=== PATIENT | male | born 1995 | race Caucasian/White ===

== ENCOUNTER → 2016-03-13 | Outpatient (CLI) | payer OTHER ==
[~2016-03-13] MED LIST: ALBUAER19 INH; AZAT50TA17 PO; CETI10TA84 PO; EPP3/2 IM; IMD/2 PO; MESA800T6 PO; PREDPOW63 PO
--- NOTE | 2016-03-13 15:58 | DIAGNOSTIC IMAGING REPORT ---
ULTRASOUND ABDOMEN COMPLETE CLINICAL HISTORY: Primary sclerosing cholangitis. COMPARISON STUDY: Abdominal ultrasound dated 04/19/15. TECHNIQUE: Real-time, grayscale, and color flow sonography of the abdomen was performed. Images are reviewed in the transverse and longitudinal planes. FINDINGS: Liver: The liver is normal in size and heterogeneous in echotexture. The liver measures 15.5 cm in length. There is no intrahepatic biliary ductal dilatation. The main portal vein is patent. Gallbladder: The gallbladder is normal in appearance. No gallstones are identified. There is no gallbladder wall thickening or pericholecystic fluid. A sonographic Payne's sign is reportedly absent. The common bile duct measures up to 0.4 cm in diameter. Pancreas: Not well visualized due to overlying bowel gas. Spleen: The spleen is enlarged, measuring 16.0 cm in length. Kidneys: The kidneys are normal in size and echotexture. There is no hydronephrosis. The right kidney measures 10.5 cm in length and the left kidney measures 11.3 cm in length. No shadowing calculi are identified. Abdominal vasculature: Visualized portions of the abdominal aorta and IVC are normal in appearance. Ascites: None. IMPRESSION: 1. The liver is normal in size and heterogeneous in echotexture. 2. Splenomegaly. 3. No gallstones are identified. 4. The pancreas was not well visualized due to overlying bowel gas. Electronically signed by: Neo Mcnair M.D. 03/13/2016 3:56 PM Dictated Date/Time: 03/13/2016 3:54 PM
--- NOTE | 2016-03-14 10:33 | DIAGNOSTIC IMAGING REPORT ---
MRCP CLINICAL HISTORY: Primary sclerosing cholangitis. COMPARISON STUDY: MRCP April 26, 2015. TECHNIQUE: Utilizing a 1.5 [place] magnet and dedicated coil, multiplanar, multiecho imaging of the abdomen was performed utilizing heavily T2-weighted sequences. No intravenous contrast was administered. FINDINGS: Heterogeneous appearance of the liver with a lace-like appearance is again noted. Hepatomegaly has slightly diminished since exam of April 26, 2015. The liver now measures 17.6 cm in craniocaudal dimension. It measured 19.5 cm on exam of April 26, 2015. No hepatic lesions are identified on this unenhanced exam. Moderate splenomegaly has slightly diminished since prior exam. The spleen now measures 16.8 cm. It previously measured 17.9 cm. There are no splenic lesions. Multifocal irregular narrowing of the intrahepatic bile ducts is again noted. This is likely similar to prior MRI. There is marked narrowing of the common hepatic duct and the confluence of the right and left hepatic ducts. On the majority of the sequences, this is similar to prior exam. On the 3-D MRCP sequence, there may be slight progression of the stricture although this could be due to motion artifact on current exam. There is no significant upstream biliary ductal dilatation. No associated mass is identified on this unenhanced exam. There is no ascites. Unenhanced images of the adrenal glands, kidneys and pancreas are normal. Caliber of visualized small and large bowel are normal. IMPRESSION: 1. Multifocal intrahepatic and extrahepatic biliary strictures consistent with primary sclerosing cholangitis. Dominant stricture of the common hepatic duct and confluence of the right and left hepatic ducts. This stricture is either stable or minimally increased since prior exam. Apparent change since prior study may be artifactual. No significant upstream dilatation. No associated mass identified on this unenhanced exam. Attention to this stricture on subsequent imaging studies is recommended. 2. Heterogeneous appearance of the liver with a lace-like appearance. The appearance is similar to prior exam although hepatomegaly has slightly diminished. The findings are consistent with diffuse liver disease and could reflect fibrosis. Overall, these findings could be seen in the setting of overlap syndrome. 3. Moderate splenomegaly, slightly diminished since prior exam. Electronically signed by: Nikolay Cross M.D. 03/14/2016 10:31 AM Dictated Date/Time: 03/13/2016 3:57 PM
== END | disposition home or self-care (01) ==
LOC: C.MRIBC 09:48
PROVIDERS: ATTEND Internal Medicine Gastroenterology
DX: K75.4 Autoimmune hepatitis (principal); K83.0 Cholangitis; R16.1 Splenomegaly, not elsewhere classified

== ENCOUNTER → 2016-03-16 | Day surgery (SDC) | payer OTHER ==
[2016-03-04 11:08] VITALS: BMI 22.0
[~2016-03-16] VITALS: Ht 175.3 cm; Wt 68.2 kg
[~2016-03-16] MED LIST changes: +LIDOCAINE HCL 2% 2 ML VIAL (20MG/ML) ONE; +MIDAZOLAM HCL 1 MG/ML 2ML VIAL ONE; +ONDANSETRON INJ 2 MG/ML 2 ML VIAL ONE; +PHENYLEPHRINE 100MCG/ML 5ML SYR ONE; +PROPOFOL IV EMULSION 10 MG/ML 20 ML VIAL IV ONE; +SODIUM CHLORIDE 0.9% 500ML 500 ML IV ONE
[2016-03-16 08:37] VITALS: Ht 175.3 cm; Wt 68.2 kg
--- NOTE | 2016-03-16 08:50 | Endo History and Physical ---
History & Physical Date of Service: Mar 16, 2016. Chief Complaint: Ulcerative colitis, PSC Referring Physician: Prabhjot Horne History of Present Illness 20 yo CM who presents for colonoscopy secondary to Ulcerative colitis and PSC. Past Medical History Asthma, Gastrointestinal Disorder, Cancer, Liver Disease Past Surgical History Hx Cardiac Surgery: No Hx Internal Defibrillator: No Hx Pacemaker: No Hx Abdominal Surgery: Yes (INGUINAL HERNIA) Hx of Implantable Prosthesis: No Hx Post-Op Nausea and Vomiting: No Hx Cancer Surgery: Yes (MOHS ON BACK) Hx Thoracic Surgery: No Hx Orthopedic: No Hx Urinary Tract Surgery: Yes (HYDROCELE REPAIR) Family History IBD Social History Smoking Status: Never Smoker Hx Substance Use: No Hx Alcohol Use: Yes (VERY RARELY) Allergies Coded Allergies: Peanut (Verified Allergy, Severe, ANAPHYLAXIS, 03/16/16) NO KNOWN DRUG ALLERGIES (Verified Allergy, Unknown, ., 03/16/16) Current Medications Reported Home Medications Medications Dose Route/Sig Max Daily Dose Days Date Category Imodium (Loperamide HCl) 2 Mg Cap 2 Mg PO QAM 03/04/16 Reported Imuran (Azathioprine) 50 Mg Tab 75 Mg PO QPM 03/04/16 Reported Asacol Hd (Mesalamine) 800 Mg Tab 2 Tab PO TID 03/04/16 Reported [Prednisone] 20 Mg PO QPM 03/04/16 Reported Epipen 2-Jole (Epinephrine) 0.3 Mg Inj 0.3 Mg IM UD PRN 12/25/13 Reported Ventolin Inhaler (Albuterol) Aers 2 Puffs INH Q4H PRN 12/25/13 Reported Zyrtec (Cetirizine HCl) 10 Mg Tab 10 Mg PO DAILY PRN 12/25/13 Reported Vital Signs Weight (Kilograms): 68.18 Height (Feet): 5 Height (Inches): 9 Physical Exam General Appearance: WD/WN, no apparent distress Respiratory/Chest: Auscultation: breath sounds normal Cardiovascular: Heart Auscultation: RRR Abdomen: Bowel Sounds: normal Inspection & Palpation: soft, non-distended, no tenderness, guarding & rebound Assessment and Plan Assessment: 20 yo CM who presents for colonoscopy secondary to Ulcerative colitis and PSC. Plan: Proceed with colonoscopy.
--- NOTE | 2016-03-16 09:48 | GI REPORT ---
Procedure Date: 03/16/2016 9:00 AM Procedure: Colonoscopy Indications: High risk colon cancer surveillance: Ulcerative pancolitis Medicines: Monitored Anesthesia Care Complications: No immediate complications. Estimated Blood Loss: Estimated blood loss: none. Procedure: Pre-Anesthesia Assessment: - Prior to the procedure, a History and Physical was performed, and patient medications and allergies were reviewed. The patient's tolerance of previous anesthesia was also reviewed. The risks and benefits of the procedure and the sedation options and risks were discussed with the patient. All questions were answered, and informed consent was obtained. Prior Anticoagulants: The patient has taken no previous anticoagulant or antiplatelet agents. ASA Grade Assessment: II - A patient with mild systemic disease. After reviewing the risks and benefits, the patient was deemed in satisfactory condition to undergo the procedure. After I obtained informed consent, the scope was passed under direct vision. Throughout the procedure, the patient's blood pressure, pulse, and oxygen saturations were monitored continuously. The scope was introduced through the anus and advanced to the terminal ileum. The colonoscopy was performed without difficulty. The patient tolerated the procedure well. The quality of the bowel preparation was good. The terminal ileum, ileocecal valve, appendiceal orifice, and rectum were photographed. Findings: A diffuse area of mildly altered vascular and erythematous mucosa was found in the entire colon. Two biopsies were taken every 10 cm with a cold forceps from the entire colon for ulcerative colitis surveillance. These biopsy specimens from the ascending colon, transverse colon and rectosigmoid colon were sent to Pathology. The exam was otherwise without abnormality. Impression: - Altered vascular and erythematous mucosa in the entire examined colon. Biopsied. - The examination was otherwise normal. Recommendation: - Resume previous diet. - Continue present medications. - Repeat colonoscopy in 1 year for surveillance based on pathology results. - Return to primary care physician as previously scheduled. Jorge Garcia DO 03/16/2016 9:47:22 AM This report has been signed electronically. Note Initiated On: 03/16/2016 9:00 AM
--- NOTE | 2016-03-16 09:51 | Discharge Instructions ---
Endoscopy Patient Instructions Date / Procedure(s) Performed Mar 16, 2016. Colonoscopy Allergy Information Coded Allergies: Peanut (Verified Allergy, Severe, ANAPHYLAXIS, 03/16/16) NO KNOWN DRUG ALLERGIES (Verified Allergy, Unknown, ., 03/16/16) Discharge Date / Findings Mar 16, 2016. Ulcerative colitis with random biopsies Medication Instructions OK to resume all medications today as prescribed. Reported Home Medications Medications Dose Route/Sig Max Daily Dose Days Date Category Imodium (Loperamide HCl) 2 Mg Cap 2 Mg PO QAM 03/04/16 Reported Imuran (Azathioprine) 50 Mg Tab 75 Mg PO QPM 03/04/16 Reported Asacol Hd (Mesalamine) 800 Mg Tab 2 Tab PO TID 03/04/16 Reported [Prednisone] 20 Mg PO QPM 03/04/16 Reported Epipen 2-Joel (Epinephrine) 0.3 Mg Inj 0.3 Mg IM UD PRN 12/25/13 Reported Ventolin Inhaler (Albuterol) Aers 2 Puffs INH Q4H PRN 12/25/13 Reported Zyrtec (Cetirizine HCl) 10 Mg Tab 10 Mg PO DAILY PRN 12/25/13 Reported Provider Instructions Activity Restrictions - No exercising or heavy lifting for 24 hours. - Do not drink alcohol the day of the procedure. - Do not drive a car or operate machinery until the day after the procedure. - Do not make any important decisions or sign important papers in 24 hours after the procedure. Following Day: - Return to full activity which may include returning to work/school. Diet Start your diet with liquids and light foods (jello, soup, juice, toast). Then eat your usual diet if not nauseated. Treatment For Common After Affects For mild abdominal pain, bloating, or excessive gas: - Rest - Eat lightly - Lie on right side Follow-Up Information Follow-up with [facility] SEG[facility] as scheduled Anesthesia Information What You Should Know You have had a procedure that required some medicine to reduce anxiety and discomfort. This treatment is called moderate sedation. After receiving the treatment, you may be sleepy, but you will be able to breathe on your own. The effects of the treatment may last for several hours. Follow these instructions along with Activity/Diet recommendations noted above: * Do NOT do anything where dizziness or clumsiness would be dangerous. * Rest quietly at home today, then you can be up and about tomorrow. * Have a responsible person stay with you the rest of today. * You may have had an I.V. today. If so, you may take the dressing off later today. Recommendations Call your doctor if: * Trouble breathing * Continuous vomiting for more than 24 hours * Temperature above 101 degrees * Severe abdominal pain or bloating * Pain not relieved by pain medicine ordered * There is increased drainage or redness from any incision * A large amount of rectal bleeding greater than 2-3 tablespoons. (If you had a polyp/s removed or have hemorrhoids, a small amount of blood - from the rectum is to be expected.) * You have any unanswered questions or concerns. IN THE EVENT OF A SERIOUS EMERGENCY, GO TO THE NEAREST EMERGENCY ROOM Your discharge instructions were prepared by provider Jorge Garcia. Patient Instructions Signature Page Mario Smith Patient (or Guardian) Signature/Date: I have read and understand the instructions given to me by my caregivers. Caregiver/RN/Doctor Signature/Date: The above-named patient and/or guardian has received patient instructions on this date. + Original Patient Signature Page (only) stays with chart. Please make copy for patient.
[2016-03-16 10:22] VITALS: BP 106/57; PULSE 57; O2SAT 99
--- NOTE | 2016-03-16 11:19 | Anesthesiology Progress Note ---
Anesthesia Post Op Note Date & Time Mar 16, 2016 at 11:18 Vital Signs Vital Signs Past 12 Hours Date Time Temp Pulse Resp B/P Pulse Ox O2 Delivery O2 Flow Rate FiO2 03/16/16 10:22 57 20 106/57 99 Room Air 03/16/16 10:16 57 20 99/54 99 Room Air 03/16/16 10:01 56 20 88/44 99 Room Air 03/16/16 09:45 57 20 91/49 99 Room Air 03/16/16 08:51 36.5 59 18 120/71 99 Room Air Notes Mental Status: alert / awake / arousable, participated in evaluation Pt Amnestic to Procedure: Yes Nausea / Vomiting: adequately controlled Pain: adequately controlled Airway Patency, RR, SpO2: stable & adequate BP & HR: stable & adequate Hydration State: stable & adequate Anesthetic Complications: no major complications apparent
== END | disposition home or self-care (01) ==
LOC: C.GI 08:26
PROVIDERS: ATTEND Internal Medicine
DX: Z12.11 Encounter for screening for malignant neoplasm of colon (principal); K51.00 Ulcerative (chronic) pancolitis without complications; Z83.79 Family history of other diseases of the digestive system

== ENCOUNTER → 2016-03-18 | Outpatient (CLI) | payer OTHER ==
[~2016-03-18] MED LIST changes: -LIDOCAINE HCL 2% 2 ML VIAL (20MG/ML) ONE; -MIDAZOLAM HCL 1 MG/ML 2ML VIAL ONE; -ONDANSETRON INJ 2 MG/ML 2 ML VIAL ONE; -PHENYLEPHRINE 100MCG/ML 5ML SYR ONE; -PROPOFOL IV EMULSION 10 MG/ML 20 ML VIAL IV ONE; -SODIUM CHLORIDE 0.9% 500ML 500 ML IV ONE
[2016-03-18 17:16] LABS: HEMATOCRIT 45.2 % (42-52); MEAN CELL VOLUME 92.8 fL (80-100); MEAN CORPUSCULAR HEMOGLOBIN 32.4 pg (25-34); MEAN PLATELET VOLUME 12.2 fL (7.4-10.4); PLATELET COUNT 78 K/uL (130-400); RED BLOOD COUNT 4.87 M/uL (4.7-6.1); WHITE BLOOD COUNT 5.89 K/uL (4.8-10.8)
[2016-03-18 17:19] LABS: INR 1.1 (0.9-1.1)
[2016-03-18 17:31] LABS: ALT/SGPT 117 U/L (12-78); BLOOD UREA NITROGEN 17 mg/dl (7-18); BUN/CREATININE RATIO 20.6 (10-20); CALCIUM 9.5 mg/dl (8.5-10.1); CARBON DIOXIDE 28 mmol/L (21-32); CHLORIDE 106 mmol/L (98-107); CREATININE 0.82 mg/dl (0.60-1.40); GLUCOSE 88 mg/dl (70-99); POTASSIUM 3.9 mmol/L (3.5-5.1); SODIUM 143 mmol/L (136-145)
[2016-03-18 17:34] LABS: ALKALINE PHOSPHATASE 94 U/L (45-117); AST/SGOT 53 U/L (15-37)
== END | disposition home or self-care (01) ==
LOC: C.LABBC 13:43
PROVIDERS: ATTEND Internal Medicine Gastroenterology
DX: K75.4 Autoimmune hepatitis (principal); K83.0 Cholangitis

== ENCOUNTER → 2016-03-30 | Outpatient (CLI) | payer OTHER ==
[2016-03-30 17:05] LABS: HEMATOCRIT 44.6 % (42-52); MEAN CELL VOLUME 92.9 fL (80-100); MEAN CORPUSCULAR HEMOGLOBIN 32.5 pg (25-34); MEAN PLATELET VOLUME 12.2 fL (7.4-10.4); PLATELET COUNT 79 K/uL (130-400); WHITE BLOOD COUNT 5.37 K/uL (4.8-10.8)
[2016-03-30 17:06] LABS: ALT/SGPT 120 U/L (12-78); AST/SGOT 50 U/L (15-37); BLOOD UREA NITROGEN 14 mg/dl (7-18); CALCIUM 8.8 mg/dl (8.5-10.1); CARBON DIOXIDE 28 mmol/L (21-32); CHLORIDE 107 mmol/L (98-107); CREATININE 0.87 mg/dl (0.60-1.40); GLUCOSE 95 mg/dl (70-99); POTASSIUM 3.7 mmol/L (3.5-5.1); SODIUM 143 mmol/L (136-145)
[2016-03-30 17:09] LABS: ALKALINE PHOSPHATASE 104 U/L (45-117)
== END | disposition home or self-care (01) ==
LOC: C.LABBC 13:37
PROVIDERS: ATTEND Internal Medicine Gastroenterology
DX: K75.4 Autoimmune hepatitis (principal); K83.0 Cholangitis

== ENCOUNTER → 2016-08-04 | Outpatient (CLI) | payer OTHER ==
[~2016-08-04] MED LIST changes: +MESA1TAB4 PO; -MESA800T6 PO
[2016-08-04 13:34] LABS: HEMATOCRIT 44.2 % (42-52); MEAN CORPUSCULAR HGB CONC 35.1 g/dl (32-36); MEAN PLATELET VOLUME 11.9 fL (7.4-10.4); PLATELET COUNT 68 K/uL (130-400); WHITE BLOOD COUNT 4.43 K/uL (4.8-10.8)
[2016-08-04 13:58] LABS: BASO % 0.2 %; BASO ABS # 0.01 K/uL (0-0.2); COMPLETE YES; EOS % 0.9 %; LYMPH % 29.3 %; MONO % 3.8 %; NEUT % 65.8 %
[2016-08-04 14:19] LABS: ALT/SGPT 95 U/L (12-78); BLOOD UREA NITROGEN 15 mg/dl (7-18); BUN/CREATININE RATIO 14.6 (10-20); C-REACTIVE PROTEIN < 0.29 mg/dl (0-0.29); CARBON DIOXIDE 27 mmol/L (21-32); CHLORIDE 109 mmol/L (98-107); CREATININE 0.99 mg/dl (0.60-1.40); GLUCOSE 115 mg/dl (70-99); POTASSIUM 3.3 mmol/L (3.5-5.1); SODIUM 144 mmol/L (136-145)
[2016-08-04 14:21] LABS: ALB/GLOB RATIO 1.1 (0.9-2); ALKALINE PHOSPHATASE 67 U/L (45-117); AST/SGOT 77 U/L (15-37)
[2016-08-04 14:22] LABS: CALCIUM 9.3 mg/dl (8.5-10.1)
[2016-08-06 10:33] LABS: QUANTIF TB AG-NIL 0.01 IU/ML; QUANTIFERON NIL 0.02 IU/ML
== END | disposition home or self-care (01) ==
LOC: C.LABBC 10:42
PROVIDERS: ATTEND Internal Medicine
DX: K51.00 Ulcerative (chronic) pancolitis without complications (principal); K83.0 Cholangitis

== ENCOUNTER → 2016-09-02 | Outpatient (CLI) | payer OTHER ==
[~2016-09-02] MED LIST changes: -MESA1TAB4 PO; +MESA800T6 PO
[2016-09-02 16:57] LABS: HEMATOCRIT 47.4 % (42-52); MEAN CELL VOLUME 94.4 fL (80-100); MEAN CORPUSCULAR HEMOGLOBIN 33.1 pg (25-34); RED BLOOD COUNT 5.02 M/uL (4.7-6.1)
[2016-09-02 16:58] LABS: MEAN PLATELET VOLUME 11.6 fL (7.4-10.4); PLATELET COUNT 86 K/uL (130-400)
[2016-09-02 17:24] LABS: BASO % 0.2 %; BASO ABS # 0.01 K/uL (0-0.2); COMPLETE YES; EOS % 0.2 %; IG% 0.2 %; LYMPH % 13.3 %; LYMPH ABS # 0.61 K/uL (1.2-3.4); MONO % 3.7 %; NEUT % 82.4 %
== END | disposition home or self-care (01) ==
LOC: C.LABBC 14:32
PROVIDERS: ATTEND Internal Medicine Gastroenterology
DX: K75.4 Autoimmune hepatitis (principal); R94.5 Abnormal results of liver function studies

== ENCOUNTER → 2016-09-11 | Outpatient (CLI) | payer OTHER ==
[2016-09-11 13:31] LABS: HEMATOCRIT 46.1 % (42-52); MEAN CELL VOLUME 94.7 fL (80-100); MEAN CORPUSCULAR HEMOGLOBIN 33.1 pg (25-34); MEAN CORPUSCULAR HGB CONC 34.9 g/dl (32-36); RED BLOOD COUNT 4.87 M/uL (4.7-6.1); WHITE BLOOD COUNT 3.98 K/uL (4.8-10.8)
[2016-09-11 13:39] LABS: MEAN PLATELET VOLUME 11.7 fL (7.4-10.4); PLATELET COUNT 73 K/uL (130-400)
[2016-09-11 14:16] LABS: BASO % 0.3 %; BASO ABS # 0.01 K/uL (0-0.2); COMPLETE YES; EOS % 0.3 %; LYMPH % 22.9 %; LYMPH ABS # 0.91 K/uL (1.2-3.4); NEUT % 73.5 %; PLT ESTIMATE DECREASED
== END | disposition home or self-care (01) ==
LOC: C.LABBC 11:53
PROVIDERS: ATTEND Internal Medicine Gastroenterology
DX: K75.4 Autoimmune hepatitis (principal); R94.5 Abnormal results of liver function studies

== ENCOUNTER → 2016-12-28 | Outpatient (CLI) | payer OTHER ==
[~2016-12-28] MED LIST changes: +MESA1TAB4 PO; -MESA800T6 PO
[2016-12-30 11:01] LABS: QUANTIF TB AG-NIL <0.00 IU/ML; QUANTIFERON NIL 0.05 IU/ML
== END | disposition home or self-care (01) ==
LOC: C.LABBC 10:48
PROVIDERS: ATTEND Internal Medicine
DX: K83.0 Cholangitis (principal)

== ENCOUNTER → 2017-03-03 | Outpatient (CLI) | payer OTHER ==
[~2017-03-03] MED LIST changes: -ALBUAER19 INH; +IBUP-1105 PO; +PRED10TA PO; -PREDPOW63 PO; +VNTHFA/IN INH
--- NOTE | 2017-03-03 08:41 | DIAGNOSTIC IMAGING REPORT ---
ABDOMEN COMPLETE (US) CLINICAL HISTORY: 21 years-old Male presenting with ELEVATED LFTS, history of primary sclerosing cholangitis. TECHNIQUE: Real-time grayscale and limited color Doppler ultrasound imaging of the abdomen was performed. COMPARISON: 03/13/2016. FINDINGS: Pancreas: Largely obscured due to overlying bowel gas. Liver: Hyperechogenic parenchyma with heterogeneous echotexture, likely indicating fibrosis or steatosis. The liver measures 16.4 cm in maximal sagittal dimension. No sonographic evidence of hepatic mass. Main portal vein patent with normal directional flow. Biliary: No intrahepatic biliary ductal dilatation. Common bile duct measures up to 4 mm in diameter. Gallbladder: No evidence of gallstones, gallbladder wall thickening, gallbladder distention, or pericholecystic fluid or inflammatory change. Spleen: Normal in echogenicity and size, measuring 17.7 cm in length. Kidneys: Normal in size and echogenicity. Right kidney measures 11.0 cm, and left kidney measures 11.2 cm. No hydronephrosis. Vasculature: Visualized portions of the IVC and abdominal aorta normal. Ascites: None. IMPRESSION: 1. Findings most consistent with hepatic fibrosis, likely consequence of primary sclerosing cholangitis. 2. Increasing splenomegaly likely implies portal hypertension, further evidence of hepatic fibrosis/cirrhosis. Electronically signed by: Rayshawn Hart M.D. 03/03/2017 8:39 AM Dictated Date/Time: 03/03/2017 8:35 AM
--- NOTE | 2017-03-03 09:23 | DIAGNOSTIC IMAGING REPORT ---
MRCP CLINICAL HISTORY: 21 years-old Male presenting with ELEVATED LFTS, history of primary sclerosing cholangitis. TECHNIQUE: Multisequence, multiplanar MR imaging of the abdomen was performed without the use of intravenous contrast. IV contrast: None. COMPARISON: 03/13/2016. FINDINGS: Localizer images: Splenomegaly. Lung bases: Lung bases clear. Normal heart size. No pericardial or pleural effusion. Liver: Normal morphology though diffuse fine T2 hyperintense reticulation consistent with fibrosis. No liver lesion allowing for noncontrast technique. Hepatic vasculature maintains normal flow related enhancement. Biliary: Subtle irregularity and intervening stenoses of intrahepatic bile ducts. Conventional intrahepatic biliary bifurcation Stenosis of the confluence of the intrahepatic ducts. Stenosis of the distal common duct at the level of the pancreatic head suggested. These findings are not significantly changed from the prior exam. Normal gallbladder. Pancreas: Normal noncontrast appearance. Spleen: Enlarged measuring over 17 cm in maximal sagittal dimension. Adrenal glands: Normal noncontrast appearance. Kidneys and ureters: Normal noncontrast appearance. No hydronephrosis. Bowel: Moderate stool burden. No bowel obstruction. Peritoneal cavity: No free fluid. Lymph nodes: No gross lymphadenopathy allowing for noncontrast technique. Vasculature: Normal flow related enhancement in the aorta and IVC. Engorgement of the splenic, superior mesenteric, and portal veins. No gross evidence of varices. Abdominal wall: Normal. Musculoskeletal: Normal noncontrast appearance of the bone marrow. IMPRESSION: 1. Irregularity and stenoses of the intrahepatic and extrahepatic bile ducts consistent with the known diagnosis of primary sclerosing cholangitis. This has not significantly progressed since the prior exam. 2. Findings consistent with hepatic fibrosis. Evaluation for liver lesions is highly limited in the absence of contrast. 3. Interval worsening of splenomegaly suggesting worsening portal hypertension in the setting of hepatic fibrosis. Electronically signed by: Rayshawn Hart M.D. 03/03/2017 9:22 AM Dictated Date/Time: 03/03/2017 9:14 AM
== END | disposition home or self-care (01) ==
LOC: C.ULTRBC 07:40
PROVIDERS: ATTEND Internal Medicine Gastroenterology
DX: K75.4 Autoimmune hepatitis (principal); R94.5 Abnormal results of liver function studies

== ENCOUNTER → 2017-03-15 | Outpatient (CLI) | payer OTHER ==
--- NOTE | 2017-03-15 10:59 | DIAGNOSTIC IMAGING REPORT ---
RIGHT FOOT 3 VIEWS HISTORY: RIGHT FOOT PAIN COMPARISON: None. FINDINGS: No acute fracture or dislocation. The Lisfranc joint is intact. Small well-corticated ossific density at the dorsal aspect of the navicular bone. This may be due to an old injury. Soft tissues are unremarkable. No radiopaque foreign bodies. IMPRESSION: No fracture or dislocation within the right foot. Electronically signed by: Ron Bethea M.D. 03/15/2017 10:58 AM Dictated Date/Time: 03/15/2017 10:53 AM
== END | disposition home or self-care (01) ==
LOC: C.RDSM 08:00
PROVIDERS: ATTEND Internal Medicine
DX: M79.673 Pain in unspecified foot (principal)

== ENCOUNTER → 2017-03-17 | Day surgery (SDC) | payer OTHER ==
[2017-02-24 12:53] VITALS: BMI 22.0
[~2017-03-17] VITALS: Ht 175.3 cm; Wt 68.2 kg
[~2017-03-17] MED LIST changes: +SODIUM CHLORIDE 0.9% 500ML 500 ML IV ONE
[2017-03-17 11:13] VITALS: Ht 175.3 cm; Wt 68.2 kg
[2017-03-17 11:21] VITALS: TEMP 36.9
--- NOTE | 2017-03-17 11:45 | Endo History and Physical ---
History & Physical Date of Service: Mar 17, 2017. Chief Complaint: ULCERATIVE COLITIS Referring Physician: DR HARMON History of Present Illness 21 yo CM who presents for Colonoscopy secondary to ulcerative colitis. Past Medical History Asthma, Gastrointestinal Disorder, Cancer, Liver Disease Past Surgical History Hx Cardiac Surgery: No Hx Internal Defibrillator: No Hx Pacemaker: No Hx Abdominal Surgery: Yes (INGUINAL HERNIA) Hx of Implantable Prosthesis: No Hx Post-Op Nausea and Vomiting: No Hx Cancer Surgery: Yes (MOHS ON BACK) Hx Thoracic Surgery: No Hx Orthopedic: No Hx Urinary Tract Surgery: Yes (HYDROCELE REPAIR) Family History IBD Social History Smoking Status: Never Smoker Hx Substance Use: No Hx Alcohol Use: Yes (VERY RARELY) Allergies Coded Allergies: Peanut (Verified Allergy, Severe, ANAPHYLAXIS, 03/17/17) NO KNOWN DRUG ALLERGIES (Verified Allergy, Unknown, NONE, 03/17/17) Current Medications Reported Home Medications Medications Dose Route/Sig Max Daily Dose Days Date Category Ibuprofen 200 Mg Tab 400 Mg PO PRN 02/24/17 Reported Prednisone 10 Mg Tab 10 Mg PO QAM 02/24/17 Reported Ventolin Hfa (Albuterol) 200 Puffs/02730 Mcg Aers 2 Puffs INH PRN 02/24/17 Reported Imodium (Loperamide HCl) 2 Mg Cap 2 Mg PO QAM PRN 03/04/16 Reported Imuran (Azathioprine) 50 Mg Tab 75 Mg PO QAM 03/04/16 Reported Asacol Hd (Mesalamine) 800 Mg Tab 2 Tab PO TID 03/04/16 Reported Epipen 2-Joel (Epinephrine) 0.3 Mg Inj 0.3 Mg IM UD PRN 12/25/13 Reported Zyrtec (Cetirizine HCl) 10 Mg Tab 10 Mg PO DAILY PRN 12/25/13 Reported Vital Signs Weight (Kilograms): 68.18 Height (Feet): 5 Height (Inches): 9 Date Time Temp Pulse Resp B/P (MAP) Pulse Ox O2 Delivery O2 Flow Rate FiO2 03/17/17 11:21 36.9 59 16 114/70 (85) 98 Room Air Physical Exam General Appearance: WD/WN, no apparent distress Respiratory/Chest: Auscultation: breath sounds normal Cardiovascular: Heart Auscultation: RRR Abdomen: Bowel Sounds: normal Inspection & Palpation: soft, non-distended, no tenderness, guarding & rebound Assessment and Plan Assessment: 21 yo CM who presents for Colonoscopy secondary to ulcerative colitis. Plan: Proceed with colonoscopy.
--- NOTE | 2017-03-17 12:18 | GI REPORT ---
Procedure Date: 03/17/2017 11:50 AM Procedure: Colonoscopy Indications: Disease activity assessment of chronic ulcerative pancolitis Medicines: Monitored Anesthesia Care Complications: No immediate complications. Estimated Blood Loss: Estimated blood loss: none. Procedure: Pre-Anesthesia Assessment: - Prior to the procedure, a History and Physical was performed, and patient medications and allergies were reviewed. The patient's tolerance of previous anesthesia was also reviewed. The risks and benefits of the procedure and the sedation options and risks were discussed with the patient. All questions were answered, and informed consent was obtained. Prior Anticoagulants: The patient has taken no previous anticoagulant or antiplatelet agents. ASA Grade Assessment: II - A patient with mild systemic disease. After reviewing the risks and benefits, the patient was deemed in satisfactory condition to undergo the procedure. After I obtained informed consent, the scope was passed under direct vision. Throughout the procedure, the patient's blood pressure, pulse, and oxygen saturations were monitored continuously. The scope was introduced through the anus and advanced to the terminal ileum. The colonoscopy was performed without difficulty. The patient tolerated the procedure well. The quality of the bowel preparation was good. The terminal ileum, ileocecal valve, appendiceal orifice, and rectum were photographed. Findings: The perianal and digital rectal examinations were normal. Inflammation characterized by erythema was found. This was mild in severity, and when compared to previous examinations, the findings are unchanged. Biopsies were taken with a cold forceps for histology of the left and right colon randomly. Non-bleeding internal hemorrhoids were found during retroflexion. The hemorrhoids were small. Impression: - Pancolitis ulcerative colitis. Inflammation was found. This was mild in severity. The findings are unchanged compared to previous examinations. Biopsied. - Non-bleeding internal hemorrhoids. Recommendation: - Resume previous diet. - Continue present medications. - Repeat colonoscopy for surveillance based on pathology results. - Return to primary care physician as previously scheduled. Jorge Garcia, 03/17/2017 12:17:34 PM This report has been signed electronically. Note Initiated On: 03/17/2017 11:50 AM I attest to the content of the Intraoperative Record and orders documented therein, exceptions below
[2017-03-17 12:43] VITALS: BP 110/65; PULSE 55; O2SAT 100
--- NOTE | 2017-03-17 12:46 | Discharge Instructions ---
Endoscopy Patient Instructions Date / Procedure(s) Performed Mar 17, 2017. Colonoscopy Allergy Information Coded Allergies: Peanut (Verified Allergy, Severe, ANAPHYLAXIS, 03/17/17) NO KNOWN DRUG ALLERGIES (Verified Allergy, Unknown, NONE, 03/17/17) Discharge Date / Findings Mar 17, 2017. Ulcerative colitis with minimal disease activity s/p biopsies of left and right colon. Medication Instructions OK to resume all medications today as prescribed Reported Home Medications Medications Dose Route/Sig Max Daily Dose Days Date Category Ibuprofen 200 Mg Tab 400 Mg PO PRN 02/24/17 Reported Prednisone 10 Mg Tab 10 Mg PO QAM 02/24/17 Reported Ventolin Hfa (Albuterol) 200 Puffs/49048 Mcg Aers 2 Puffs INH PRN 02/24/17 Reported Imodium (Loperamide HCl) 2 Mg Cap 2 Mg PO QAM PRN 03/04/16 Reported Imuran (Azathioprine) 50 Mg Tab 75 Mg PO QAM 03/04/16 Reported Asacol Hd (Mesalamine) 800 Mg Tab 2 Tab PO TID 03/04/16 Reported Epipen 2-Joel (Epinephrine) 0.3 Mg Inj 0.3 Mg IM UD PRN 12/25/13 Reported Zyrtec (Cetirizine HCl) 10 Mg Tab 10 Mg PO DAILY PRN 12/25/13 Reported Provider Instructions Activity Restrictions - No exercising or heavy lifting for 24 hours. - Do not drink alcohol the day of the procedure. - Do not drive a car or operate machinery until the day after the procedure. - Do not make any important decisions or sign important papers in 24 hours after the procedure. Following Day: - Return to full activity which may include returning to work/school. Diet Start your diet with liquids and light foods (jello, soup, juice, toast). Then eat your usual diet if not nauseated. Treatment For Common After Affects For mild abdominal pain, bloating, or excessive gas: - Rest - Eat lightly - Lie on right side Follow-Up Information Follow-up with DR HARMON as scheduled Anesthesia Information What You Should Know You have had a procedure that required some medicine to reduce anxiety and discomfort. This treatment is called moderate sedation. After receiving the treatment, you may be sleepy, but you will be able to breathe on your own. The effects of the treatment may last for several hours. Follow these instructions along with Activity/Diet recommendations noted above: * Do NOT do anything where dizziness or clumsiness would be dangerous. * Rest quietly at home today, then you can be up and about tomorrow. * Have a responsible person stay with you the rest of today. * You may have had an I.V. today. If so, you may take the dressing off later today. Recommendations Call your doctor if: * Trouble breathing * Continuous vomiting for more than 24 hours * Temperature above 101 degrees * Severe abdominal pain or bloating * Pain not relieved by pain medicine ordered * There is increased drainage or redness from any incision * A large amount of rectal bleeding greater than 2-3 tablespoons. (If you had a polyp/s removed or have hemorrhoids, a small amount of blood - from the rectum is to be expected.) * You have any unanswered questions or concerns. IN THE EVENT OF A SERIOUS EMERGENCY, GO TO THE NEAREST EMERGENCY ROOM Your discharge instructions were prepared by provider Jorge Garcia. Patient Instructions Signature Page Mario Smith Patient (or Guardian) Signature/Date: I have read and understand the instructions given to me by my caregivers. Caregiver/RN/Doctor Signature/Date: The above-named patient and/or guardian has received patient instructions on this date. + Original Patient Signature Page (only) stays with chart. Please make copy for patient.
--- NOTE | 2017-03-17 13:05 | Anesthesiology Progress Note ---
Anesthesia Post Op Note Date & Time Mar 17, 2017 at 13:04 Vital Signs Pain Intensity: 0 Vital Signs Past 12 Hours Date Time Temp Pulse Resp B/P (MAP) Pulse Ox O2 Delivery O2 Flow Rate FiO2 03/17/17 12:43 55 18 110/65 (80) 100 Room Air 03/17/17 12:28 55 16 103/60 (74) 99 Room Air 03/17/17 12:13 64 16 95/44 (61) 96 Room Air 03/17/17 11:21 36.9 59 16 114/70 (85) 98 Room Air Notes Mental Status: alert / awake / arousable, participated in evaluation Pt Amnestic to Procedure: Yes Nausea / Vomiting: adequately controlled Pain: adequately controlled Airway Patency, RR, SpO2: stable & adequate BP & HR: stable & adequate Hydration State: stable & adequate Anesthetic Complications: no major complications apparent
== END | disposition home or self-care (01) ==
LOC: C.GI 11:04
PROVIDERS: ATTEND Internal Medicine
DX: K51.00 Ulcerative (chronic) pancolitis without complications (principal); K64.8 Other hemorrhoids; J45.909 Unspecified asthma, uncomplicated; Z98.890 Other specified postprocedural states; Z85.828 Personal history of other malignant neoplasm of skin

== ENCOUNTER → 2017-10-14 | Outpatient (CLI) | payer OTHER ==
[~2017-10-14] MED LIST changes: -SODIUM CHLORIDE 0.9% 500ML 500 ML IV ONE
== END | disposition home or self-care (01) ==
LOC: C.MAMM 09:06
PROVIDERS: ATTEND Internal Medicine Gastroenterology
DX: K75.4 Autoimmune hepatitis (principal); Z79.899 Other long term (current) drug therapy; K83.0 Cholangitis; Z91.048 Other nonmedicinal substance allergy status; Z91.010 Allergy to peanuts

== ENCOUNTER → 2017-10-25 | Outpatient (CLI) | payer OTHER ==
[2017-10-25 17:51] LABS: ALBUMIN 3.9 gm/dl (3.4-5.0); ALKALINE PHOSPHATASE 164 U/L (45-117); ALT/SGPT 154 U/L (12-78); AST/SGOT 91 U/L (15-37); BLOOD UREA NITROGEN 25 mg/dl (7-18); CALCIUM 9.2 mg/dl (8.5-10.1); CARBON DIOXIDE 27 mmol/L (21-32); CREATININE 1.06 mg/dl (0.60-1.40); GLUCOSE 97 mg/dl (70-99); POTASSIUM 4.2 mmol/L (3.5-5.1); SODIUM 138 mmol/L (136-145); TOTAL PROTEIN 7.9 gm/dl (6.4-8.2)
[2017-10-25 18:06] LABS: HEMATOCRIT 49.5 % (42-52); HEMOGLOBIN 17.3 g/dL (14.0-18.0); MEAN CELL VOLUME 93.2 fL (80-100); MEAN CORPUSCULAR HEMOGLOBIN 32.6 pg (25-34); MEAN CORPUSCULAR HGB CONC 34.9 g/dl (32-36); MEAN PLATELET VOLUME 12.6 fL (7.4-10.4); PLATELET COUNT 68 K/uL (130-400); RED CELL DISTRIBUTION WIDTH CV 14.9 % (11.5-14.5); RED CELL DISTRIBUTION WIDTH SD 50.6 fL (36.4-46.3); WHITE BLOOD COUNT 4.38 K/uL (4.8-10.8)
[2017-10-25 18:09] LABS: BASO % 0.2 %; BASO ABS # 0.01 K/uL (0-0.2); EOS % 0.2 %; EOS ABS # 0.01 K/uL (0-0.5); LYMPH % 15.5 %; LYMPH ABS # 0.68 K/uL (1.2-3.4); MONO % 3.2 %; MONO ABS # 0.14 K/uL (0.11-0.59); NEUT % 80.9 %; NEUT ABS # 3.54 K/uL (1.4-6.5)
== END | disposition home or self-care (01) ==
LOC: C.LABBC 15:28
PROVIDERS: ATTEND Internal Medicine
DX: K75.4 Autoimmune hepatitis (principal); K51.00 Ulcerative (chronic) pancolitis without complications